=== PATIENT | male | born 1945 | race Caucasian/White ===

== ENCOUNTER 2021-06-15 16:44 | Emergency (ER) | payer OTHER, SELFPAY ==
[2021-06-15 16:48] VITALS: BP 118/55; PULSE 65; RESP 16; TEMP 36.3; O2SAT 100
[2021-06-15 19:42] VITALS: BP 113/66; PULSE 65; RESP 18; TEMP 36.7; O2SAT 99
--- NOTE | 2021-06-15 19:49 | PC.NURSE ---
Lovenox comes in 80 mg/0.8 ml syringe. Ordered dose for two syringes at 0.84 mL. Clarified with ANN LAND to give on 80 mg injection.
[2021-06-15] MEDS: ENOXAPARIN 80 MG/0.8 ML SYRINGE 84 MG SUB-Q (19:51)
--- NOTE | 2021-06-15 19:57 | ED.LOWEXIN ---
HPI - Extremity Injury (Lower) General Chief Complaint: Extremity Injury, Lower Stated Complaint: left leg swelling Time Seen by Provider: 06/15/21 18:44 History of Present Illness HPI Narrative: Patient is a 76-year-old male who presents ER with lower extremity swelling and left calf pain. Swelling has been worsening over the last 5 to 7 days. Calf pain over the last 4 to 5 days. No chest pain or shortness of breath. No orthopnea. No pain in his groin. Was seen by his PCP today and they ordered an outpatient ultrasound at [facility]. He got there and was unable to get the ultrasound. Him and his then decided come here for further evaluation. Patient has known renal issues with creatinine of 1.48. Related Data Allergies Allergy/AdvReac Type Severity Reaction Status Date / Time aspirin Allergy Unknown Hives Verified 06/15/21 19:45 shellfish derived Allergy Swelling Verified 06/15/21 19:45 of Lip/Tongue/Throat Review of Systems Cardiovascular: Cardiovascular: Denies chest pain, Denies rapid heart rate and Denies radiating jaw, neck or arm pain Respiratory: Respiratory: Denies cough, Denies dyspnea and Denies wheezing Gastrointestinal: Gastrointestinal: Denies abdominal pain, Denies nausea and Denies vomiting Musculoskeletal: Musculoskeletal: Denies arthralgias, Denies joint swelling and Denies muscle cramps Comments: Left calf pain bilateral lower extremity edema. PMFSH Past Medical History Medical History (Updated 06/15/21 @ 20:02 by Justus Summers MD) Depression Hyperlipidemia Hypertension Kidney stones Surgical History Surgical History (Updated 06/15/21 @ 19:59 by Justus Summers MD) History of tonsillectomy Social History Social History (Updated 06/15/21 @ 19:59 by Justus Summers MD) Smoking status: Never smoker Exam Narrative: GENERAL: Well-appearing, well-nourished, and in no acute distress. HEAD: Normocephalic, atraumatic. CHEST: Clear to auscultation. No respiratory distress. HEART: Regular rate and rhythm. Normal peripheral pulses. EXTREMITIES: Normal range of motion. 2+ edema bilaterally. Negative Homans' sign. SKIN: Warm, dry, no rash. NEURO: Alert and oriented x3. PSYCH: Normal mood and affect. Course Course Emergency Course: Patient given Lovenox. 7 AM appointment for ultrasound scheduled for tomorrow. Results to his PCP. Attempted to contact the office but did not receive a return phone call. Vital Signs Vital signs: Vital Signs Temperature 97.3 F L 06/15/21 16:48 Pulse Rate 65 06/15/21 16:48 Respiratory Rate 16 06/15/21 16:48 Blood Pressure 118/55 L 06/15/21 16:48 Pulse Oximetry 100 06/15/21 16:48 Temperature 98.1 F 06/15/21 19:42 Pulse Rate 65 06/15/21 19:42 Respiratory Rate 18 06/15/21 19:42 Blood Pressure 113/66 06/15/21 19:42 Pulse Oximetry 99 06/15/21 19:42 Discharge Plan Discharge Clinical Impression: Edema of both lower extremities Patient Disposition: Home, Self-Care Condition: Stable Instructions: Deep Vein Thrombosis (ED), Leg Edema (ED) Additional Instructions: Return to the ER if you have chest pain with shortness of breath, you lose consciousness, you cannot keep down food or water, you have additional concerns. You have an ultrasound scheduled for 7 AM tomorrow morning. Arrive 10 to 15 minutes early to fill out paperwork. You received Lovenox to treat a blood clot. If you fall and strike your head return to the ER immediately. Other Ambulatory Orders: US venous doppler LE BI (Routine) Timeframe: [id number] Location: Determined by Patient Ordered By: Justus Summers Follow-up/Referrals: Shila,Zandra Olivier MD [Primary Care Provider] - 1 Day
--- NOTE | 2021-06-15 20:20 | PC.NURSE ---
Pt has palpable pedal pulses
== END 2021-06-15 20:22 | disposition home or self-care (01) ==
PROVIDERS: Emergency Provider Emergency Medicine; PCP Family Medicine
DX: R60.0 Localized edema (principal); E78.5 Hyperlipidemia, unspecified; I10 Essential (primary) hypertension; Z87.442 Personal history of urinary calculi
CPT/HCPCS: 96372; 99283; J1650

== ENCOUNTER 2021-06-16 07:03 | Outpatient (CLI) | payer MEDICARE, SELFPAY ==
--- NOTE | ~2021-06-16 | US_ITS ---
EXAMINATION: US venous doppler [facility] DATE: 06/16/2021 07:40 INDICATION: Lower limb localized edema. TECHNIQUE: Grayscale ultrasound images without and with compression and Doppler ultrasound images of the bilateral lower extremity veins were obtained. COMPARISON: None. FINDINGS: The visualized portions of right common femoral vein, profunda (deep) femoral vein, femoral vein, pop liteal vein, peroneal veins, posterior tibial veins, and greater saphenous vein outflow are patent. The visualized portions of left common femoral vein, profunda femoral vein, femoral vein, popliteal v ein, peroneal veins, posterior tibial veins, and greater saphenous vein outflow are patent. There is a moderate-sized Schmitt's cyst. IMPRESSION: 1. No deep venous thrombosis. 2. Moderate-sized left Schmitt's cyst. Reviewed, dictated and finalized at location A. R HAND
== END 2021-06-16 07:04 | disposition home or self-care (01) ==
PROVIDERS: PCP Family Medicine; Visit Provider Family Medicine
DX: R60.0 Localized edema (principal); M71.22 Synovial cyst of popliteal space [Baker], left knee
CPT/HCPCS: 93970

== ENCOUNTER 2024-03-16 13:59 | Outpatient (CLI) | payer MEDICARE, SELFPAY ==
--- NOTE | ~2024-03-16 | US_ITS ---
EXAMINATION: US arterial ankle brachial ind DATE: 03/16/2024 15:12 INDICATION: Poor peripheral circulation TECHNIQUE: Segmental pressures and plethysmographic and Doppler waveforms of the brachial and lower e xtremity arteries were obtained. COMPARISON: None. FINDINGS: Right and left brachial artery pressures of 133 mm Hg and 127 mm Hg, respectively, are concordant (no rmal difference <= 30 mmHg). The right ankle-brachial index (SAPNA) is 1.34 (normal >= 0.9-1.0). The right great toe-brachial index (TBI) is 0.55 (normal >= 0.65). Arterial Doppler waveforms are biphasic with brisk systolic upstrokes at both right posterior tibial and dorsalis pedis arteries. The left SAPNA is 1.39. The left TBI is 0.61. Arterial Doppler waveforms are biphasic with brisk systol ic upstrokes at both left posterior tibial and dorsalis pedis arteries. IMPRESSION: 1. 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 Reviewed, dictated and finalized at location B. IMPRESSION: 1. 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
== END 2024-03-16 14:00 | disposition home or self-care (01) ==
PROVIDERS: PCP Physician Assistant; Visit Provider Physician Assistant
DX: I73.9 Peripheral vascular disease, unspecified (principal)
CPT/HCPCS: 93922